=== PATIENT | female | born 1980 | race Caucasian/White ===

== ENCOUNTER 2018-04-27 20:35 | Emergency (ER) | payer OTHER ==
[2018-04-27 21:44] LABS: Basophils # (Auto) 0.1 K/mm3 (0.0-0.1); Basophils % (Auto) 0.4 % (0.0-1.8); Eosinophils # (Auto) 0.2 K/mm3 (0.0-0.4); Eosinophils % (Auto) 1.6 % (0.0-4.3); Hematocrit 37.3 % (30.3-42.9); Lymphocytes # (Auto) 3.4 K/mm3 (1.2-5.4); Lymphocytes % (Auto) 26.4 % (13.4-35.0); Mean Corpuscular HGB Conc 35 % (30-34); Mean Corpuscular Hemoglobin 30 pg (28-32); Mean Corpuscular Volume 85 fl (79-97); Monocytes # (Auto) 0.9 K/mm3 (0.0-0.8); Monocytes % (Auto) 7.2 % (0.0-7.3); Platelet Count 264 K/mm3 (140-440); Red Blood Count 4.39 M/mm3 (3.65-5.03); Red Cell Distribution Width 14.4 % (13.2-15.2)
[2018-04-27 22:06] LABS: Alanine Aminotransferase 17 units/L (7-56); Albumin 4.2 g/dL (3.9-5); BUN/Creatinine Ratio 17; Blood Urea Nitrogen 10 mg/dL (7-17); Calcium 9.7 mg/dL (8.4-10.2); Hemolysis Index 3; Lipase 37 units/L (13-60)
--- NOTE | 2018-04-28 00:03 | Ultrasound Report ---
FINAL REPORT EXAM: US OB < = 14 WEEKS FETUS HISTORY: pain 3 mo preg TECHNIQUE: Routine transabdominal imaging was obtained the pelvis including Doppler interrogation of the uterus. FINDINGS: The uterus is anteverted measuring 13.7 cm x 7.5 cm x 9.1 cm. Within the uterus is a well-formed gestational sac which contains a pole. The crown-rump length is 50.8 mm corresponding to an 11 week 6 day IUP. The heart rate is 162 BPM. There is no evidence of subchorionic hemorrhage or free fluid. Both ovaries normal in size contour and echotexture. The right ovary measures 2.8 cm x 2 cm x 2.9 cm. The left ovary measures 3.8 cm x 2.2 cm x 2.7 cm. IMPRESSION: Single viable IUP, 11 weeks 6 days. The heart rate is 162 BPM.
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
[2018-04-28 01:10] VITALS: BP 136/85
== END 2018-04-28 00:48 | disposition home or self-care (01) ==
LOC: ED 20:35
DX: O9A.211 Injury, poisoning and certain other consequences of external causes complicating pregnancy, first trimester (principal); S30.1XXA Contusion of abdominal wall, initial encounter; S00.93XA Contusion of unspecified part of head, initial encounter; Z3A.11 11 weeks gestation of pregnancy; V49.59XA Passenger injured in collision with other motor vehicles in traffic accident, initial encounter; Y93.89 Activity, other specified; Y92.488 Other paved roadways as the place of occurrence of the external cause; Y99.8 Other external cause status
CPT/HCPCS: 36415; 76801; 80053; 83690; 85025; 99284

== ENCOUNTER 2018-10-15 00:36 | Inpatient (IN) | payer MEDICAID, OTHER ==
[2018-10-15] MEDS ORDERED: XYLOCAINE 2% INFILTRATI ONE (01:33)
[2018-10-15] MEDS ORDERED: AMPICILLIN/NS 2 GM/100 ML 2 GM/100 ML BAG IV ONE (01:33)
[2018-10-15] MEDS ORDERED: BRETHINE SUB-Q PRN (01:33)
[2018-10-15] MEDS ORDERED: MINERAL OIL PO PRN (01:45)
[2018-10-15] MEDS ORDERED: LACTATED RINGERS 1,000 ML IV SCH ×2 (02:00→10:00)
--- NOTE | 2018-10-15 02:05 | History and Physical Report ---
History of Present Illness Date of examination: 10/15/18 Date of admission: 10/15/2018 Chief complaint: Leaking of water from vagina since midnight. History of present illness: 38 year old presents to L&D complaining of leaking of clear fluid from vagina since midnight tonight. Patient reports active movement. She denies vaginal bleeding. Patient receives her care at [facility]. She does not have records with her and no records are available. Patient states her EDC is 11/11/18; by US done in triage today EDC is 11/16/18. significant for the following: AMA, obesity, hypertension, GDM (diet controlled). Patient states she does not see [facility]. She has a history of preeclampsia with previous and was put on LDA therapy with this . labs have been ordered and US has been ordered. Past History Past Medical History: other (obesity; history of preeclampsia with a previous ) Past Surgical History: D&C (after SAB; pt. has had 6 SABs. 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 denies: smoking, alcohol abuse, prescription drug abuse, IV drug use - Obstetrical History Expected Date of Delivery: 11/11/18 Actual Gestation: 36 Week(s) 1 Day(s) : 8 Para: 1 Hx # Term Pregnancies: 0 Number of Pregnancies: 1 Spontaneous Abortions: 6 (one SAB was at 16 weeks) Induced : 0 Number of Living Children: 1 Medications and Allergies Allergies Allergy/AdvReac Type Severity Reaction Status Date / Time No Known Allergies Allergy Verified 10/15/18 01:41 Active Meds: Active Medications Ephedrine Sulfate (Ephedrine Sulfate) 10 mg IV Q2M PRN PRN Reason: Hypotension Fentanyl (Sublimaze) 100 mcg IV Q2H PRN PRN Reason: Labor Pain Ampicillin Sodium (Polycillin/Ns 2 Gm/100 Ml) 2 gm in 100 mls @ 100 mls/hr IV ONCE ONE; Protocol Stop: 10/15/18 02:32 Lactated Ringer's (Lactated Ringers) 1,000 mls @ 125 mls/hr IV DIRECT RITA Oxytocin/Sodium Chloride (Pitocin/Ns 20 Unit/1000ml Drip) 20 units in 1,000 mls @ 125 mls/hr IV DIRECT RITA Ampicillin Sodium (Ampicillin/Ns 1 Gm/50 Ml) 1 gm in 50 mls @ 100 mls/hr IV Q4HR RITA; Protocol Mineral Oil (Mineral Oil) 30 ml PO QHS PRN PRN Reason: Constipation Terbutaline Sulfate (Brethine) 0.25 mg SUB-Q ONCE PRN PRN Reason: Hyperstimulation/Hypertonicity Review of Systems All systems: negative (leaking of fluid from vagina since midnight) - Vital Signs Vital signs: Vital Signs Pulse Ox 97 10/15/18 01:16 Temp Pulse Resp BP Pulse Ox 80 144/73 95 10/15/18 02:01 10/15/18 01:39 10/15/18 02:01 - Physical Exam Abdomen: Positive: normal appearance, soft. Negative: distention, tenderness, guarding, rigidity Genitourinary (Female): Positive: normal external genitalia, normal perenium. Negative: perineal/vulvar lesions Vagina: Positive: normal moisture Uterus: Positive: enlarged Anus/Rectum: Positive: normal perianal skin Extremities: Positive: normal. Negative: tenderness, edema - Obstetrical FHR: category 2 Uterine Contraction Monitor Mode: External Cervical Dilatation: 3.5 Cervical Effacement Percentage: 70 station: -3 Uterine Contraction Pattern: Irregular Uterine Contraction Intensity: Mild Results All other labs normal. Assessment and Plan A: at 36 weeks, 1 day gestation (35 weeks, 3 days gestation by US done in triage today). Spontaneous rupture of membranes. Labor. GBS unknown. GDM diet controlled. Hypertension. P: Admit. Continuous EFM. GBS prophylaxis. Anticipate vaginal . [facility].
--- NOTE | 2018-10-15 02:55 | Ultrasound Report ---
PROCEDURE: US OB FOLLOW UP TECHNIQUE: Transabdominal imaging was obtained of the pelvis. HISTORY: COMPARISONS: 04/27/2018 FINDINGS: There is a single viable intrauterine in cephalic presentation having a sonographic gestati onal age of 35 weeks 3 days. The heart rate is 147 BPM. The placenta is posterior in position a nd is grade 2. The BASIA is diminished at 5.4 cm. A complete survey of organs was not obtained. T he estimated weight is 2761 g. The EDC is 11/16/2018 IMPRESSION: Cephalic presentation, 35 week 3 day . heart rate is 147 BPM. BASIA is diminished at 5.4 cm. Oligohydramnios. Estimated weight is 2761 g. The EDC is 11/16/2018. This document is electronically signed by Delvis Toney MD., October 15 2018 02:52:07 AM ET
[2018-10-15] MEDS ORDERED: CELESTONE SOLUSPAN IM SCH (03:39)
[2018-10-15 04:06] LABS: Hematocrit 33.2 % (30.3-42.9); Hemoglobin 11.3 gm/dl (10.1-14.3); Mean Corpuscular HGB Conc 34 % (30-34); Mean Corpuscular Volume 79 fl (79-97); Platelet Count 251 K/mm3 (140-440); Red Blood Count 4.18 M/mm3 (3.65-5.03); Red Cell Distribution Width 16.6 % (13.2-15.2)
[2018-10-15 04:26] LABS: Alanine Aminotransferase 20 units/L (7-56); Albumin 3.2 g/dL (3.9-5); BUN/Creatinine Ratio 22; Blood Urea Nitrogen 11 mg/dL (7-17); Calcium 9.3 mg/dL (8.4-10.2); Hemolysis Index 6
[2018-10-15] MEDS: LACTATED RINGERS 1,000 ML IV SCH ×2 (04:27→10:51)
[2018-10-15 04:42] LABS: Uric Acid 3.1 mg/dL (3.5-7.6)
[2018-10-15] MEDS: SUBLIMAZE IV PRN ×2 (04:51→08:39)
[2018-10-15] MEDS ORDERED: APRESOLINE IV ONE (04:53)
[2018-10-15 05:33] LABS: Hepatitis C Virus Antibody Nonreactive (NonReactive)
[2018-10-15] MEDS ORDERED: AMPICILLIN/NS 1 GM/50 ML 1 GM/50 ML BAG IV SCH (05:46)
[2018-10-15] MEDS ORDERED: ZOFRAN IV PRN ×2 (09:00→18:13)
--- NOTE | 2018-10-15 09:52 | Progress Note ---
Assessment and Plan - Patient Problems (1) 36 weeks gestation of Current Visit: Yes Status: Acute (2) Spontaneous rupture of amniotic membranes Current Visit: Yes Status: Acute Plan to address problem: Continue routine labor orders Labor augmentation with Oxytocin initiated Anticipate vaginal delivery (3) Chronic hypertension affecting Current Visit: Yes Status: Acute Plan to address problem: SBPs elevated Asymptomatic Consulted Dr. Syed about POC. Antihypertensive therapy initiated with Labetalol 200mg PO BID Subjective - Subjective Date of service: 10/15/18 Principal diagnosis: IUD @ 36w1d; SROM; CHTN Interval history: see H&P Patient reports: movement normal, contractions, other (denies headache, visual disturbances or RUQ pain), no vaginal bleeding Objective - Vital Signs Vital Signs: Vital Signs - 12hr 10/15/18 10/15/18 10/15/18 01:16 01:18 01:21 Temperature Pulse Rate 72 73 Respiratory Rate Blood Pressure 164/79 O2 Sat by Pulse 97 97 Oximetry 10/15/18 10/15/18 10/15/18 01:24 01:26 01:29 Temperature Pulse Rate 73 72 71 Respiratory Rate Blood Pressure 147/71 144/74 O2 Sat by Pulse 97 Oximetry 10/15/18 10/15/18 10/15/18 01:31 01:34 01:36 Temperature Pulse Rate 74 72 72 Respiratory Rate Blood Pressure 149/73 O2 Sat by Pulse 98 98 Oximetry 10/15/18 10/15/18 10/15/18 01:39 01:41 01:46 Temperature Pulse Rate 73 84 78 Respiratory Rate Blood Pressure 144/73 O2 Sat by Pulse 97 95 Oximetry 10/15/18 10/15/18 10/15/18 01:51 01:56 02:01 Temperature Pulse Rate 75 73 80 Respiratory Rate Blood Pressure O2 Sat by Pulse 97 95 95 Oximetry 10/15/18 10/15/18 10/15/18 02:05 02:06 02:11 Temperature Pulse Rate 75 79 89 Respiratory Rate Blood Pressure 132/66 O2 Sat by Pulse 93 97 98 Oximetry 10/15/18 10/15/18 10/15/18 02:12 02:16 02:21 Temperature Pulse Rate 79 76 74 Respiratory Rate Blood Pressure O2 Sat by Pulse 89 97 97 Oximetry 10/15/18 10/15/18 10/15/18 02:25 02:26 02:31 Temperature Pulse Rate 77 81 79 Respiratory Rate Blood Pressure 159/80 O2 Sat by Pulse 94 97 97 Oximetry 10/15/18 10/15/18 10/15/18 02:36 02:37 02:41 Temperature Pulse Rate 77 85 81 Respiratory Rate Blood Pressure O2 Sat by Pulse 99 93 96 Oximetry 10/15/18 10/15/18 10/15/18 02:46 02:51 02:56 Temperature Pulse Rate 83 83 79 Respiratory Rate Blood Pressure O2 Sat by Pulse 95 97 97 Oximetry 10/15/18 10/15/18 10/15/18 02:59 03:01 03:05 Temperature 98.8 F Pulse Rate 83 74 70 Respiratory 22 Rate Blood Pressure O2 Sat by Pulse 94 96 93 Oximetry 10/15/18 10/15/18 10/15/18 03:06 03:11 03:16 Temperature Pulse Rate 78 70 77 Respiratory Rate Blood Pressure 165/73 O2 Sat by Pulse 97 99 95 Oximetry 10/15/18 10/15/18 10/15/18 03:21 03:22 03:25 Temperature Pulse Rate 77 82 75 Respiratory Rate Blood Pressure 149/72 O2 Sat by Pulse 98 94 Oximetry 10/15/18 10/15/18 10/15/18 03:26 03:29 03:31 Temperature Pulse Rate 72 77 79 Respiratory Rate Blood Pressure O2 Sat by Pulse 98 94 96 Oximetry 10/15/18 10/15/18 10/15/18 03:35 03:36 03:41 Temperature Pulse Rate 83 77 74 Respiratory Rate Blood Pressure O2 Sat by Pulse 94 96 97 Oximetry 10/15/18 10/15/18 10/15/18 03:44 03:45 03:46 Temperature Pulse Rate 80 77 79 Respiratory Rate Blood Pressure 144/80 O2 Sat by Pulse 93 93 Oximetry 10/15/18 10/15/18 10/15/18 03:49 03:51 04:06 Temperature Pulse Rate 79 80 81 Respiratory Rate Blood Pressure 175/94 O2 Sat by Pulse 93 97 Oximetry 10/15/18 10/15/18 10/15/18 04:35 05:05 05:35 Temperature 98.3 F Pulse Rate 77 74 80 Respiratory 18 Rate Blood Pressure 145/68 128/60 135/62 O2 Sat by Pulse Oximetry 10/15/18 10/15/18 10/15/18 06:05 06:36 07:05 Temperature Pulse Rate 78 81 81 Respiratory Rate Blood Pressure 139/67 148/82 145/78 O2 Sat by Pulse Oximetry 10/15/18 10/15/18 10/15/18 07:20 07:33 07:49 Temperature 99.8 F H Pulse Rate 80 90 85 Respiratory 20 Rate Blood Pressure 150/85 161/79 O2 Sat by Pulse Oximetry 10/15/18 10/15/18 10/15/18 07:50 08:04 08:36 Temperature Pulse Rate 80 90 89 Respiratory Rate Blood Pressure 153/74 143/73 152/78 O2 Sat by Pulse Oximetry 10/15/18 10/15/18 10/15/18 08:43 08:48 08:53 Temperature Pulse Rate 77 77 77 Respiratory Rate Blood Pressure 149/78 132/72 124/65 O2 Sat by Pulse Oximetry 10/15/18 10/15/18 10/15/18 08:55 08:58 09:05 Temperature 98.8 F Pulse Rate 77 80 Respiratory 20 Rate Blood Pressure 132/65 137/70 O2 Sat by Pulse Oximetry 10/15/18 10/15/18 10/15/18 09:08 09:13 09:19 Temperature Pulse Rate 92 H 87 83 Respiratory Rate Blood Pressure 126/63 128/64 121/61 O2 Sat by Pulse Oximetry - Exam FHR: category 2 FHR comments: baseline 140, moderate variability, 15x15 accels, early/1 late/intermittent variable decels Uterine Contraction Monitor Mode: External Cervical Dilatation: 3 (per RN) Cervical Effacement Percentage: 90 (per RN) station: -2 (per RN) Uterine Contraction Pattern: Regular - Labs Labs: Abnormal Labs 10/15/18 10/15/18 02:00 02:00 MCH 27 L RDW 16.6 H Creatinine 0.5 L Uric Acid 3.1 L Alkaline Phosphatase 219 H Lactate Dehydrogenase 221 H Albumin 3.2 L Laboratory Results - last 24 hr 10/15/18 10/15/18 10/15/18 02:00 02:00 02:00 WBC 10.7 RBC 4.18 Hgb 11.3 Hct 33.2 MCV 79 MCH 27 L MCHC 34 RDW 16.6 H Plt Count 251 Sodium 140 Potassium 3.9 Chloride 104.2 Carbon Dioxide 22 Anion Gap 18 BUN 11 Creatinine 0.5 L Estimated GFR > 60 BUN/Creatinine Ratio 22 Glucose 89 Hemoglobin A1c Uric Acid 3.1 L Calcium 9.3 Total Bilirubin < 0.20 AST 21 ALT 20 Alkaline Phosphatase 219 H Lactate Dehydrogenase 221 H Total Protein 6.5 Albumin 3.2 L Albumin/Globulin Ratio 1.0 Hep Bs Antigen Hepatitis C Antibody HIV 1&2 Antibody Rapid HIV P24 Antigen Rubella IgG Antibody Blood Type O POSITIVE Antibody Screen Negative 10/15/18 10/15/18 10/15/18 02:00 02:00 02:00 WBC RBC Hgb Hct MCV MCH MCHC RDW Plt Count Sodium Potassium Chloride Carbon Dioxide Anion Gap BUN Creatinine Estimated GFR BUN/Creatinine Ratio Glucose Hemoglobin A1c 5.9 Uric Acid Calcium Total Bilirubin AST ALT Alkaline Phosphatase Lactate Dehydrogenase Total Protein Albumin Albumin/Globulin Ratio Hep Bs Antigen Non-reactive Hepatitis C Antibody Nonreactive HIV 1&2 Antibody Rapid HIV P24 Antigen Rubella IgG Antibody Immune Blood Type Antibody Screen 10/15/18 02:00 WBC RBC Hgb Hct MCV MCH MCHC RDW Plt Count Sodium Potassium Chloride Carbon Dioxide Anion Gap BUN Creatinine Estimated GFR BUN/Creatinine Ratio Glucose Hemoglobin A1c Uric Acid Calcium Total Bilirubin AST ALT Alkaline Phosphatase Lactate Dehydrogenase Total Protein Albumin Albumin/Globulin Ratio Hep Bs Antigen Hepatitis C Antibody HIV 1&2 Antibody Rapid Non react HIV P24 Antigen Non react Rubella IgG Antibody Blood Type Antibody Screen
[2018-10-15] MEDS ORDERED: PITOCin/NS 30 UNIT/500ML 30 UNITS/500 ML BAG IV SCH (10:00)
[2018-10-15] MEDS: NORMODYNE PO SCH ×2 (10:11→22:57)
[2018-10-15] MEDS ORDERED: LIDOCAINE 1.5%/EPI 1:200,000 INFILTRATI ONE (11:44)
[2018-10-15] MEDS ORDERED: NEO SYNEPHRINE/NS Syringe(OR USE) IV ONE (12:24)
[2018-10-15] MEDS ORDERED: NARCAN 2 MG/2 ML IV PRN (12:24)
[2018-10-15] MEDS: AMPICILLIN/NS 1 GM/50 ML 1 GM/50 ML BAG IV SCH ×2 (12:30→16:30)
[2018-10-15] MEDS ORDERED: LACTATED RINGERS 1,000 ML IV ONE ×2 (13:00)
[2018-10-15] MEDS ORDERED: fentaNYL-BUPIV 2 MCG/ML-0.125% 200 MCG/100 ML BAG EPIDURAL SCH (13:00)
[2018-10-15] MEDS ORDERED: XYLOCAINE MPF 2% ONE (14:39)
[2018-10-15] MEDS: PITOCin/NS 20 UNIT/1000ML DRIP 20 UNITS/1,000 ML BAG IV SCH ×2 (17:50→19:09)
[2018-10-15] MEDS ORDERED: TYLENOL PO PRN (18:13)
[2018-10-15] MEDS ORDERED: LANSINOH TP PRN (18:13)
[2018-10-15] MEDS ORDERED: PHENERGAN PO PRN (18:13)
[2018-10-15] MEDS ORDERED: NORCO 5/325 PO PRN (18:13)
[2018-10-15] MEDS ORDERED: DULCOLAX PR PRN (18:13)
[2018-10-15] MEDS ORDERED: BENADRYL PO PRN (18:13)
[2018-10-15] MEDS ORDERED: PHENERGAN PR PRN (18:13)
[2018-10-15] MEDS ORDERED: TUCKS PAD TP PRN (18:13)
[2018-10-15] MEDS ORDERED: MILK OF MAGNESIA PO PRN (18:13)
--- NOTE | 2018-10-15 18:24 | Procedure Note ---
<ROSEY TONG - Last Filed: 10/15/18 18:20> OB Delivery Note - Delivery Date of Delivery: 10/15/18 (17:40) Surgeon: ROSEY TONG (LUPE) Estimated blood loss: 200cc - Vaginal Delivery presentation: vertex Delivery position: OA Intrapartum events: labor-<37 weeks, gestational hypertension Delivery induction: none Delivery augmentation: pitocin Delivery monitor: external FHT, external uterine, internal FHT Route of delivery: (17:40) Delivery placenta: spontaneous (17:48) Delivery cord: 3 umbilical vessels Episiotomy: none Delivery laceration: other (skidmark) Delivery repair: vicryl Anesthesia: epidural Delivery comments: of a vigorous term 5 lbs 7 oz male on 10/15/18 @ 17:40 with NICU team at bedside. Baby placed [id number] on maternal abdomen and dried. After 5 mins, umbilical cord doubled-clamped by LUPE Tong and cut by FOB. Cord blood collected. Spontaneous delivery of placenta, Harjinder-side presenting @ 17:48. Small lochia present. Fundal massage and IV Pitocin bolus initiated. Fundus F//U-1. Placenta intact; was discarded. 1 skidmark moted near introitus & oozing; hemostasis achieved with 1 stitch. Mom and baby in stable condition. - A at 1 minute: 8 at 5 minutes: 9 Infant Gender: Male (5 lbs 7 oz (2453 gm); 18 in) <KOTA KEATING - Last Filed: 10/18/18 09:20> OB Delivery Note - Vaginal Delivery laceration: other (superficial laceration)
[2018-10-15] MEDS ORDERED: SODIUM CHLORIDE FLUSH SYRINGE 10 ML IV NR (19:00)
[2018-10-15] MEDS ORDERED: GENTAMICIN/NS 120MG/100ML 120 MG/100 ML BAG IV ONE (20:30)
[2018-10-15] MEDS: IBUPROFEN PO SCH (22:52)
[2018-10-16 00:52] LABS: Hematocrit 28.9 % (30.3-42.9); Hemoglobin 9.5 gm/dl (10.1-14.3); Mean Corpuscular HGB Conc 33 % (30-34); Mean Corpuscular Volume 80 fl (79-97); Platelet Count 223 K/mm3 (140-440); Red Cell Distribution Width 16.3 % (13.2-15.2)
[2018-10-16] MEDS: IBUPROFEN PO SCH ×2 (05:53→05:54)
[2018-10-16] MEDS: PRENATAL VITAMIN PO SCH (10:30)
[2018-10-16] MEDS: GENTAMICIN/NS 80 MG/100 ML 100 ML IV SCH (10:30)
[2018-10-16] MEDS: FEOSOL PO SCH (10:30)
--- NOTE | 2018-10-16 11:09 | Progress Note ---
Assessment and Plan A: 38 yo, @ PPD#1 AMA Obesity Chronic HTN Choroamnionitis P: Continue current Amp/Gent x 24 hrs D/C home tomorrow Subjective - Subjective Date of service: 10/16/18 Principal diagnosis: IUD @ 36w1d; SROM; CHTN Patient reports: appetite normal, voiding normally, pain well controlled, ambulating normally : doing well, bottle feeding (and breast feeding) Objective - Vital Signs Latest vital signs: Vital Signs Temp Pulse Resp BP BP Pulse Ox 10/16/18 07:56 98.4 F 80 24 99/54 96 10/16/18 05:20 98.6 F 77 16 96/53 10/16/18 01:22 98.9 F 98 H 18 98/51 97 10/15/18 22:57 83 105/62 10/15/18 21:15 98.8 F 83 20 105/62 10/15/18 19:49 91 H 109/54 10/15/18 19:18 88 122/69 10/15/18 19:01 1004 F H 20 10/15/18 18:56 100.4 F H 94 H 122/68 10/15/18 18:37 92 H 96 10/15/18 18:32 97 H 95 10/15/18 18:31 93 H 94 10/15/18 18:27 101 H 94 10/15/18 18:26 97 H 122/58 10/15/18 18:25 95 H 93 10/15/18 18:22 94 H 95 10/15/18 18:21 96 H 122/58 10/15/18 18:17 96 H 97 10/15/18 18:16 97 H 120/60 10/15/18 18:11 103 H 113/57 10/15/18 17:51 99.2 F 20 10/15/18 17:43 107 H 118/56 10/15/18 17:38 107 H 91 10/15/18 17:36 100.3 F H 10/15/18 17:33 96 H 95 10/15/18 17:32 92 H 92 10/15/18 17:28 103 H 129/62 97 10/15/18 17:25 92 H 92 10/15/18 17:23 96 H 89 10/15/18 17:19 88 89 10/15/18 17:18 99 H 97 10/15/18 17:14 90 140/70 10/15/18 17:13 98 H 97 10/15/18 17:11 88 87 10/15/18 17:08 89 97 10/15/18 17:05 87 93 10/15/18 17:03 96 H 80 L 10/15/18 16:58 98 H 120/58 91 10/15/18 16:53 95 H 91 10/15/18 16:52 89 91 10/15/18 16:48 93 H 95 10/15/18 16:46 94 H 91 10/15/18 16:43 95 H 115/58 95 10/15/18 16:39 92 H 94 10/15/18 16:38 93 H 95 10/15/18 16:33 92 H 91 10/15/18 16:28 89 121/57 94 10/15/18 16:27 90 94 10/15/18 16:23 94 H 96 10/15/18 16:21 96 H 89 10/15/18 16:18 89 94 10/15/18 16:14 93 H 123/57 88 10/15/18 16:13 94 H 97 10/15/18 16:08 99 H 97 10/15/18 16:03 99 H 97 10/15/18 16:01 98 H 85 10/15/18 15:58 93 H 112/58 96 10/15/18 15:56 102 H 94 10/15/18 15:53 92 H 99 10/15/18 15:48 96 H 99 10/15/18 15:44 92 H 108/55 10/15/18 15:43 93 H 93 10/15/18 15:38 92 H 96 10/15/18 15:35 96 H 86 10/15/18 15:33 102 H 94 10/15/18 15:28 94 H 110/54 90 10/15/18 15:23 102 H 91 10/15/18 15:21 93 H 94 10/15/18 15:18 97 H 90 10/15/18 15:15 97 H 93 10/15/18 15:13 94 H 112/54 92 10/15/18 15:10 98.8 F 20 10/15/18 15:09 96 H 92 10/15/18 15:08 98.2 F 95 H 96 10/15/18 15:03 90 92 10/15/18 14:58 89 118/56 93 10/15/18 14:57 98.3 F 93 H 20 90 10/15/18 14:53 99 H 93 10/15/18 14:51 95 H 94 10/15/18 14:48 93 H 93 10/15/18 14:46 97 H 92 10/15/18 14:44 96 H 116/55 10/15/18 14:43 93 H 92 10/15/18 14:40 110 H 94 10/15/18 14:38 104 H 95 10/15/18 14:34 96 H 92 10/15/18 14:33 94 H 96 10/15/18 14:29 85 110/59 10/15/18 14:28 90 94 10/15/18 14:27 95 H 85 10/15/18 14:23 100 H 97 10/15/18 14:22 112 H 91 10/15/18 14:18 96 H 96 10/15/18 14:16 100 H 93 10/15/18 14:14 105 H 110/57 10/15/18 14:13 106 H 97 10/15/18 14:09 97 H 94 10/15/18 14:08 99 H 97 10/15/18 14:03 92 H 95 10/15/18 14:01 100 H 94 10/15/18 13:59 93 H 118/55 10/15/18 13:58 94 H 98 10/15/18 13:53 96 H 96 10/15/18 13:52 93 H 94 10/15/18 13:48 85 99 10/15/18 13:44 91 H 115/56 10/15/18 13:43 93 H 96 10/15/18 13:38 88 99 10/15/18 13:33 97 H 99 10/15/18 13:28 101 H 100/53 99 10/15/18 13:23 92 H 99 10/15/18 13:18 83 99 10/15/18 13:13 94 H 97/55 100 10/15/18 13:08 84 100 10/15/18 13:03 91 H 100 10/15/18 12:58 93 H 92 10/15/18 12:57 92 H 93 10/15/18 12:56 78 104/55 10/15/18 12:53 80 92 10/15/18 12:52 85 94 10/15/18 12:48 88 101/55 95 10/15/18 12:47 86 79/39 10/15/18 12:46 93 H 78/41 94 10/15/18 12:45 90 80/44 10/15/18 12:43 86 95 10/15/18 12:42 88 96/52 10/15/18 12:40 90 93/52 91 10/15/18 12:38 86 74/35 93 10/15/18 12:37 86 94/38 10/15/18 12:34 86 92/49 93 10/15/18 12:33 90 95 10/15/18 12:32 88 90/52 10/15/18 12:29 82 112/59 10/15/18 12:28 77 96 10/15/18 12:27 95 H 93 10/15/18 12:26 85 81/40 10/15/18 12:24 88 90/40 10/15/18 12:23 90 91 10/15/18 12:22 85 89/43 10/15/18 12:21 86 101/48 94 10/15/18 12:20 87 106/53 10/15/18 12:19 88 108/54 10/15/18 12:18 92 H 112/56 96 10/15/18 12:17 88 114/54 10/15/18 12:16 93 H 91/46 10/15/18 12:15 92 H 93 10/15/18 12:14 90 84/42 10/15/18 12:13 87 88/49 95 10/15/18 12:12 87 91/52 10/15/18 12:11 87 86/48 10/15/18 12:10 83 98/52 10/15/18 12:09 84 93 10/15/18 12:08 80 62/28 94 10/15/18 12:07 78 63/28 10/15/18 12:04 82 72/36 10/15/18 12:03 86 80/44 95 10/15/18 12:02 90 91/54 10/15/18 12:01 95 H 96/50 10/15/18 12:00 101 H 109/51 10/15/18 11:59 107 H 126/60 10/15/18 11:58 106 H 126/71 10/15/18 11:56 101 H 144/83 10/15/18 11:51 20 Intake and Output 10/15/18 10/16/18 10/16/18 23:59 07:59 15:59 Intake Total 377.583 240 Output Total 700 Balance -322.417 240 Intake: IV 177.583 PITOCin/NS 20 UNIT/1000ML 164.583 DRIP 20 units In 1,000 ml @ 125 mls/hr IV DIRECT RITA Rx#:[id number] PITOCin/NS 30 UNIT/500ML 13 30 units In 500 ml @ 1 mls/hr IV TITR RITA Rx#: [id number] Oral 200 Intake, Free Water 240 Output: Urine 700 Indwelling Catheter 400 Void 300 Other: Total, Intake Amount 200 Total, Output Amount 300 Estimated Blood Loss 200 - Exam Breasts: Present: normal Cardiovascular: Present: Regular rate, Normal S1, Normal S2 Lungs: Present: Clear to auscultation, Normal air movement Abdomen: Present: normal appearance Uterus: Present: normal, firm, fundal height at umbilicus (U-1), fundal height below umbilicus Extremities: Present: normal Deep Tendon Reflex Grade: Normal +2 - Labs Labs: Abnormal lab results 10/16/18 Range/Units 00:27 WBC 16.8 H (4.5-11.0) K/mm3 RBC 3.60 L (3.65-5.03) M/mm3 Hgb 9.5 L (10.1-14.3) gm/dl Hct 28.9 L (30.3-42.9) % MCH 26 L (28-32) pg RDW 16.3 H (13.2-15.2) %
[2018-10-16] MEDS: NORMODYNE PO SCH (11:18)
[2018-10-17] MEDS: GENTAMICIN/NS 80 MG/100 ML 100 ML IV SCH
[2018-10-17] MEDS: IBUPROFEN PO SCH ×2 (00:02→13:55)
[2018-10-17] MEDS: NORMODYNE PO SCH ×3 (10:20→22:24)
--- NOTE | 2018-10-17 11:11 | Progress Note ---
Assessment and Plan A: PP Day #2 Choroamionitis Asymptomatic Anemia P: Follow Routine Orders FeSO4 325mg PO BID Plans Sterilization Depo Provera prior to discharge D/C Home in the AM Subjective - Subjective Date of service: 10/17/18 Principal diagnosis: IUD @ 36w1d; SROM; CHTN Patient reports: appetite normal, voiding normally, pain well controlled, flatus, bowel movement, ambulating normally, other (Patient states that she feel good) : doing well, other (Patient desires d/c home in the AM because infant has to stay for further testing), bottle feeding (and ) Objective - Vital Signs Latest vital signs: Vital Signs Temp Pulse Resp BP BP Pulse Ox 10/17/18 07:52 98.7 F 76 18 130/76 97 10/17/18 00:00 98.3 F 73 18 126/78 10/16/18 16:49 98.6 F 75 24 117/54 96 10/16/18 12:06 97.9 F 82 20 116/58 96 Intake and Output 10/16/18 10/17/18 10/17/18 22:59 06:59 14:59 Intake Total 200 200 360 Balance 200 200 360 Intake: Oral 200 200 Intake, Free Water 360 Other: Total, Intake Amount 200 200 # Voids Void 1 1 1 - Exam Breasts: Present: normal Cardiovascular: Present: Regular rate Lungs: Present: Clear to auscultation, Normal air movement Abdomen: Present: normal appearance, soft, normal bowel sounds Uterus: Present: normal, firm, fundal height below umbilicus Extremities: Present: normal
--- NOTE | 2018-10-17 11:12 | Discharge Summary ---
Providers - Providers Date of Admission: 10/15/18 02:22 Date of discharge: 10/18/18 Attending physician: ELIZABETH BHATTI MD Primary care physician: ELIZABETH BHATTI MD Hospitalization Reason for admission: active labor Delivery: Episiotomy: none Laceration: none Other procedures: none complications: none Discharge diagnosis: IUP at term delivered [place] baby: male Condition at discharge: Good Disposition: DC-01 TO HOME OR SELFCARE Plan - Provider Discharge Summary Activity: routine, no sex for 6 weeks, no heavy lifting 4 weeks, no strenuous exercise Diet: routine Instructions: routine Additional instructions: [] Smoking cessation referral if applicable(refer to patient education folder for contact #) [] Refer to [facility]'s [facility] Booklet Call your doctor immediately for: * Fever > 100.5 * Heavy vaginal bleeding ( >1 pad per hour) * Severe persistent headache * Shortness of breath * Reddened, hot, painful area to leg or breast * Drainage or odor from incision. * Keep incision clean and dry at all times and follow doctor's instructions regarding bathing/showering - Follow up plan Follow up: ELIZABETH BHATTI MD [Primary Care Provider] - 14 Days
[2018-10-17] MEDS: PRENATAL VITAMIN PO SCH (13:55)
[2018-10-17] MEDS: FEOSOL PO SCH (13:56)
[2018-10-17] MEDS ORDERED: DEPO-PROVERA (CONTRACEPTION) IM ONE (14:11)
[2018-10-18] MEDS: IBUPROFEN PO SCH ×2 (00:41→06:29)
[2018-10-18] MEDS: FEOSOL PO SCH (10:43)
[2018-10-18] MEDS: NORMODYNE PO SCH (10:43)
[2018-10-18] MEDS: PRENATAL VITAMIN PO SCH (10:45)
[2018-10-18 12:53] VITALS: BP 139/71
== END 2018-10-18 13:55 | disposition home or self-care (01) | DRG 805 ==
LOC: TRG 00:36 → LD 02:22 → OB 21:15
PROVIDERS: ADMIT Obstetrics & Gynecology; ATTEND Obstetrics & Gynecology
PROC: 10E0XZZ Delivery of Products of Conception, External Approach (ICD-10-PCS; principal; 2018-10-15)
PROC: 3E0R3BZ Introduction of Anesthetic Agent into Spinal Canal, Percutaneous Approach (ICD-10-PCS; 2018-10-15)
PROC: 00HU33Z Insertion of Infusion Device into Spinal Canal, Percutaneous Approach (ICD-10-PCS; 2018-10-15)
DX: O41.1230 Chorioamnionitis, third trimester, not applicable or unspecified (principal); O60.14X0 Preterm labor third trimester with preterm delivery third trimester, not applicable or unspecified; Z37.0 Single live birth; Z3A.36 36 weeks gestation of pregnancy; O99.02 Anemia complicating childbirth; D64.9 Anemia, unspecified; O99.214 Obesity complicating childbirth; E66.9 Obesity, unspecified; O13.4 Gestational [pregnancy-induced] hypertension without significant proteinuria, complicating childbirth; O70.9 Perineal laceration during delivery, unspecified
CPT/HCPCS: 36415; 76816; 80053; 83036; 83615; 84550; 85027; 86592; 86706; 86762; 86803; 86850; 86900; 86901; 87806; G0378; J0290; J0702; J1050; J1580; J2370; J2405; J2590; J3010; J7120